=== PATIENT | male | born 1965 | race Caucasian/White ===

== ENCOUNTER 2023-05-06 06:57 | Day surgery (SDC) | payer OTHER ==
[2023-05-05 16:00] VITALS: BMI 27.3
[2023-05-06] MEDS ORDERED: BUPIVACAINE HCL/PF 2.5 MG/ML - 30 ML VIAL IJ ONE (08:15)
[2023-05-06] MEDS ORDERED: SUCCINYLCHOLINE CHLORIDE 200 MG/10 ML SYRINGE ONE (08:45)
[2023-05-06] MEDS ORDERED: PROPOFOL 40 ML ONE (08:45)
[2023-05-06] MEDS ORDERED: MIDAZOLAM HCL 2 MG/2 ML SINGLE DOSE VIAL ONE (08:45)
[2023-05-06] MEDS ORDERED: HYDROmorphone HCL/PF 1 MG/ML VIAL ONE (08:58)
[2023-05-06] MEDS ORDERED: BUPIVACAINE HCL/PF 0.25% (2.5MG/ML) 10 ML VIAL STI ONE (09:55)
[2023-05-06] MEDS ORDERED: oxyCODONE HCL 5 MG TABLET PO PRN ×2 (10:14)
[2023-05-06] MEDS ORDERED: FENTANYL CITRATE/PF 50 MCG/ML VIAL ONE (10:37)
[2023-05-06] MEDS ORDERED: oxyCODONE HCL 5 MG TABLET ONE (11:31)
[2023-05-06 11:46] VITALS: RESP 16; TEMP 97.6
[2023-05-06 12:57] VITALS: BP 141/93; PULSE 74
== END 2023-05-06 12:50 | disposition home or self-care (01) ==
LOC: FASU 06:57
PROVIDERS: ATTEND Orthopaedic Surgery
PROC: 0LM30ZZ Reattachment of Right Upper Arm Tendon, Open Approach (ICD-10-PCS; principal; 2023-05-06 09:22)
DX: S46.211A Strain of muscle, fascia and tendon of other parts of biceps, right arm, initial encounter (principal); X58.XXXA Exposure to other specified factors, initial encounter; Y93.9 Activity, unspecified; Y92.9 Unspecified place or not applicable
CPT/HCPCS: 88304-TC; 94760; C1713